=== PATIENT | female | born 1950 | race Caucasian/White ===

== ENCOUNTER → 2017-07-14 | Outpatient (CLI) | payer MEDICARE, OTHER ==
--- NOTE | 2017-07-14 12:27 | REP ---
Clinical: Lower back and right sacroiliac pain. Technique: AP, lateral, bilateral oblique and coned-down views of the lumbosacral spine. Comparison: None. Findings: Vertebral bodies are intact and there is no evidence for acute fracture / compression injury. 2 mm of anterolisthesis at the L4-5 level is suggested and probably chronic based on associated hypertrophic facet changes. Alignment and lordosis is otherwise maintained. Moderate multilevel degenerative changes include marginal spurring, endplate sclerosis, hypertrophic facet changes and disc space narrowing. Impression: Mild to moderate multilevel degenerative changes including 2 mm anterolisthesis at the L4-5 level which appears chronic. Signed by Samir Armstrong MD 07/14/2017 12:18 P
--- NOTE | 2017-07-14 12:42 | REP ---
Clinical: Right lower extremity pain. Technique: Neutral and frog lateral views of the right hip. Findings: Early advanced arthritic changes include increased sclerosis and irregularity to the acetabulum with marginal spurring and osteophyte formation as well as joint space narrowing and osteophyte formation along the inferomedial aspect of the femoral head. No acute fracture dislocation. No obvious corticated loose bodies. Impression: Early advanced arthritic degenerative changes. Signed by Samir Armstrong MD 07/14/2017 12:33 P
== END ==
LOC: M CLY 11:37
PROVIDERS: ATTEND Family Medicine
DX: M53.3 Sacrococcygeal disorders, not elsewhere classified (principal); M16.11 Unilateral primary osteoarthritis, right hip; M43.16 Spondylolisthesis, lumbar region
CPT/HCPCS: 72110; 73502; G0463

== ENCOUNTER → 2018-01-06 | Outpatient (CLI) | payer MEDICARE, OTHER | LOC: M SLEEP 19:31 | DX: G47.30 Sleep apnea, unspecified (principal) | CPT/HCPCS: 95810 ==

== ENCOUNTER → 2018-01-17 | Outpatient (CLI) | payer MEDICARE, OTHER | LOC: M SLEEP 20:00 | DX: G47.33 Obstructive sleep apnea (adult) (pediatric) (principal) | CPT/HCPCS: 95811 ==

== ENCOUNTER → 2018-05-19 | Outpatient (REF) | payer MEDICARE, OTHER | LOC: M SFHCCLAY 10:58 | DX: R31.9 Hematuria, unspecified (principal) | CPT/HCPCS: 87088; 87186 ==

== ENCOUNTER → 2020-09-04 | Outpatient (CLI) | payer SELFPAY ==
[~2020-09-04] MED LIST: ASPI81TA26 PO; IBUP-1022 PO; tumeric
== END ==
LOC: M LABSMTC 10:34
PROVIDERS: ATTEND Pediatrics
DX: Z20.822 Contact with and (suspected) exposure to COVID-19 (principal)

== ENCOUNTER → 2020-09-26 | Outpatient (REF) | payer MEDICARE, OTHER ==
[2020-09-26 12:06] LABS: BASO % 0.6 % (0.0-1.0); EOS # 0.2 10^3/uL (0.0-0.5); EOS % 3.6 % (0.0-3.0); HEMATOCRIT 40.5 % (36.0-47.0); HEMOGLOBIN 12.6 g/dl (12.0-15.5); LYMPH # 1.5 10^3/uL (1.5-5.0); LYMPH % 29.1 % (24.0-44.0); MEAN CORPUSCULAR HEMOGLOBIN 29.9 pg (27.0-33.0); MEAN CORPUSCULAR HGB CONC 31.1 g/dl (32.0-36.5); MEAN CORPUSCULAR VOLUME 96.2 fl (80.0-96.0); MONO # 0.5 10^3/uL (0.0-0.8); MONO % 9.4 % (0.0-5.0); NEUTROPHILS # 2.9 10^3/uL (1.5-8.5); NEUTROPHILS % 57.1 % (36.0-66.0); PLATELET COUNT, AUTOMATED 329 10^3/uL (150-450); RED BLOOD COUNT 4.21 10^6/uL (4.00-5.40)
[2020-09-26 12:42] LABS: ALBUMIN 3.8 GM/DL (3.2-5.2); ALT/SGPT 20 U/L (12-78); BILIRUBIN,TOTAL 0.5 MG/DL (0.2-1.0); BLOOD UREA NITROGEN 14 MG/DL (7-18); CARBON DIOXIDE LEVEL 30 MEQ/L (21-32); CHLORIDE LEVEL 103 MEQ/L (98-107); CHOLESTEROL LEVEL 221 MG/DL (<200); CHOLESTEROL RISK RATIO 3.202 (<5); CREATININE FOR GFR 0.73 MG/DL (0.55-1.30); GLOMERULAR FILTRATION RATE > 60.0 (>39); GLUCOSE, FASTING 97 MG/DL (70-100); HDL CHOLESTEROL 69 MG/DL (>40); LDL CHOLESTEROL 139 MG/DL (<100); NON-HDL-C 152 MG/DL; POTASSIUM SERUM 4.4 MEQ/L (3.5-5.1); SODIUM LEVEL 140 MEQ/L (136-145); TOTAL PROTEIN 6.9 GM/DL (6.4-8.2); TRIGLYCERIDES LEVEL 66 MG/DL (<150)
== END ==
LOC: M SFHCCLAY 08:46
PROVIDERS: ATTEND Family Medicine
DX: E78.5 Hyperlipidemia, unspecified (principal); I34.1 Nonrheumatic mitral (valve) prolapse
CPT/HCPCS: 80053; 80061; 85025; G0463

== ENCOUNTER → 2023-07-23 | Outpatient (REF) | payer MEDICARE, OTHER | LOC: M SFHCLERA 16:52 | PROVIDERS: ATTEND Physician Assistant Medical | DX: J02.9 Acute pharyngitis, unspecified (principal) ==

== ENCOUNTER → 2023-09-29 | Outpatient (CLI) | payer MEDICARE, OTHER | LOC: M CLY 11:33 | PROVIDERS: ATTEND Family Medicine | DX: M19.012 Primary osteoarthritis, left shoulder (principal) ==

== ENCOUNTER → 2023-09-29 | Outpatient (CLI) | payer MEDICARE, OTHER | LOC: M CLY 11:14 | PROVIDERS: ATTEND Family Medicine | DX: M25.512 Pain in left shoulder (principal) ==